=== PATIENT | female | born 1990 | race Two or more races ===

== ENCOUNTER 2021-04-22 08:10 | Outpatient (CLI) | payer OTHER | END 2021-04-22 08:11 | disposition home or self-care (01) | LOC: RX STUDY 08:10 | PROVIDERS: ATTEND Obstetrics & Gynecology Obstetrics | DX: Z98.51 Tubal ligation status (principal) ==

== ENCOUNTER 2023-09-06 14:45 | Inpatient (IN) | payer OTHER ==
[~2023-09-06] VITALS: Ht 162.6 cm; Wt 78.0 kg
[2023-09-26] MEDS ORDERED: OXYTOCIN 500 ML IV SCH (05:00)
[2023-09-26] MEDS ORDERED: AMPICILLIN SODIUM 2,000 MG VIAL IV ONE (05:00)
[2023-09-26 06:21] LABS: HEMATOCRIT 35.7 % (36.0-45.00); HEMOGLOBIN 12.5 g/dL (12.0-15.00); MEAN CELL VOLUME 95.1 fL (80.00-100.00); MEAN CORPUSCULAR HEMOGLOBIN 33.3 pg (27.00-32.0); PLATELET COUNT 250 K/uL (150-450); RED BLOOD COUNT 3.76 M/uL (4.00-6.00); RED CELL DISTRIBUTION WIDTH 12.6 % (11.5-14.5)
[2023-09-26 07:04] LABS: INR < 0.93; PARTIAL THROMBOPLASTIN TIME 27.6 SECONDS (22.0-34.0); PROTHROMBIN TIME 9.4 SECONDS (9.0-11.5)
[2023-09-26 07:09] LABS: BILIRUBIN TOTAL 0.53 mg/dL (0.3-1.2); CREATININE SERUM 0.59 mg/dL (0.55-1.02); GFR 117.38; GLOBULINA 4.1 G/DL (2.4-3.5); POTASSIUM 3.93 mEq/L (3.5-5.1); TOTAL PROTEIN 7.1 gm/dL (6.4-8.2)
[2023-09-26] MEDS ORDERED: AMPICILLIN SODIUM 1,000 MG VIAL IV SCH (08:00)
[2023-09-26] MEDS ORDERED: ONDANSETRON HCL 2 MG/ML VIAL IV NR (13:00)
[2023-09-26] MEDS ORDERED: MORPHINE SULFATE 4 MG/ML VIAL IV ONE ×2 (14:00→17:45)
[2023-09-26] MEDS ORDERED: CITRIC ACID/SODIUM CITRATE 30 ML BLIST.PACK PO NR (14:45)
[2023-09-26] MEDS ORDERED: ERYTHROMYCIN BASE 1 GM TUBE OP SCH (19:45)
[2023-09-26] MEDS ORDERED: CHLORHEXIDINE GLUCONATE 120 ML BOTTLE TP SCH (19:45)
[2023-09-26] MEDS ORDERED: IBUprofen 400 MG TABLET PO PRN (19:45)
[2023-09-26] MEDS ORDERED: DOCUSATE SODIUM 100MG CAP PO NR (20:00)
[2023-09-26] MEDS ORDERED: LIDOCAINE HCL 1% 10ML VIAL PERCUT ONE (20:00)
[2023-09-26] MEDS ORDERED: OXYTOCIN 1,000 ML IV ONE (20:15)
[2023-09-26 21:44] LABS: ABG PH 7.252 (7.35-7.45); ABG pCO2 47.1 mmHg (35-45)
[2023-09-26 21:45] LABS: ABG PO2 28.4 mmHg (80-100); BICARBONATE 20.3 mmol/l (23-25); SaO2 40.8 %; Tco2 21.7 mmol/l
[2023-09-26 21:46] LABS: o2 21 %
[2023-09-27 07:49] LABS: HEMATOCRIT 26.4 % (36.0-45.00); MEAN CELL VOLUME 93.4 fL (80.00-100.00); MEAN CORPUSCULAR HEMOGLOBIN 32.6 pg (27.00-32.0); MEAN CORPUSCULAR HGB CONC 34.9 g/dl (32.0-36.0); PLATELET COUNT 204 K/uL (150-450); RED BLOOD COUNT 2.82 M/uL (4.00-6.00); RED CELL DISTRIBUTION WIDTH 12.2 % (11.5-14.5)
[2023-09-27 07:56] LABS: HEMOGLOBIN 9.2 g/dL (12.0-15.00)
[2023-09-27] MEDS ORDERED: PNV,CALCIUM 72/IRON/FOLIC ACID 1 TAB TABLET PO SCH (09:00)
[2023-09-27] MEDS ORDERED: DOCUSATE SODIUM 100MG CAP PO SCH (09:00)
[2023-09-27] MEDS ORDERED: IRON/V.C/V.B12/FOLIC A/VIT. E 1 CAPL CAPLET PO SCH (12:00)
[2023-09-27] MEDS ORDERED: ONDANSETRON 4 MG TAB.RAPDIS PO PRN (17:30)
== END 2023-09-28 14:05 | disposition home or self-care (01) | DRG 807 ==
LOC: LDR 09-24 14:45 → OB/GYN 09-26 04:46 → LDR 09-26 04:46 → OB/GYN 09-26 12:19
PROVIDERS: Obstetrics & Gynecology Gynecology; ADMIT Obstetrics & Gynecology Maternal & Fetal Medicine; ATTEND Obstetrics & Gynecology Maternal & Fetal Medicine
PROC: 10E0XZZ Delivery of Products of Conception, External Approach (ICD-10-PCS; principal; 2023-09-26)
PROC: 0KQM0ZZ Repair Perineum Muscle, Open Approach (ICD-10-PCS; 2023-09-26)
PROC: 4A1HXCZ Monitoring of Products of Conception, Cardiac Rate, External Approach (ICD-10-PCS; 2023-09-26)
DX: O70.1 Second degree perineal laceration during delivery (principal); Z37.0 Single live birth; O99.824 Streptococcus B carrier state complicating childbirth; Z3A.37 37 weeks gestation of pregnancy; Z20.822 Contact with and (suspected) exposure to COVID-19

== ENCOUNTER 2023-09-21 08:53 | Outpatient (CLI) | payer OTHER | END 2023-09-21 09:34 | disposition home or self-care (01) | LOC: NST 08:53 | PROVIDERS: ATTEND Obstetrics & Gynecology Maternal & Fetal Medicine | DX: Z34.83 Encounter for supervision of other normal pregnancy, third trimester (principal) ==

== ENCOUNTER 2023-09-24 06:56 | Outpatient (CLI) | payer OTHER | END 2023-09-24 07:52 | disposition home or self-care (01) | LOC: NST 06:56 | PROVIDERS: ATTEND Obstetrics & Gynecology Maternal & Fetal Medicine | DX: Z34.83 Encounter for supervision of other normal pregnancy, third trimester (principal) ==

== ENCOUNTER 2024-01-16 20:59 | Emergency (ER) | payer OTHER ==
[~2024-01-16] VITALS: Ht 162.6 cm; Wt 68.0 kg
[2024-01-16 21:31] VITALS: BP 117/74; O2SAT 96
[2024-01-16] MEDS ORDERED: FAMOTIDINE/PF 20 MG in 0.9 % SODIUM CHLORIDE 8 ML IV PUSH STA (22:05)
[2024-01-16] MEDS ORDERED: ONDANSETRON HCL 2 MG/ML VIAL IV ONE (22:15)
[2024-01-16] MEDS ORDERED: HYOSCYAMINE SULFATE 0.125 MG TAB.SUBL SL ONE (22:15)
[2024-01-16] MEDS ORDERED: 0.9 % SODIUM CHLORIDE 1,000 ML IV SCH (22:15)
[2024-01-16 23:06] LABS: HEMOGLOBIN 12.6 g/dL (12.0-15.00); MEAN CELL VOLUME 89.3 fL (80.00-100.00); MEAN CORPUSCULAR HEMOGLOBIN 30.5 pg (27.00-32.0); MEAN CORPUSCULAR HGB CONC 34.1 g/dl (32.0-36.0); PLATELET COUNT 344 K/uL (150-450); RED BLOOD COUNT 4.15 M/uL (4.00-6.00); RED CELL DISTRIBUTION WIDTH 13.6 % (11.5-14.5)
[2024-01-16 23:57] LABS: ALBUMIN 4.3 gm/dL (3.4-5.0); BILIRUBIN TOTAL 0.82 mg/dL (0.3-1.2); CALCIUM 9.6 mg/dL (8.5-10.1); CREATININE SERUM 0.49 mg/dL (0.55-1.02); GFR 145.44; GLOBULINA 4.3 G/DL (2.4-3.5); POTASSIUM 3.81 mEq/L (3.5-5.1); TOTAL PROTEIN 8.6 gm/dL (6.4-8.2)
[2024-01-16] MEDS ORDERED: PEPCID AC20 MG PO (23:59)
[2024-01-16] MEDS ORDERED: ZOFRAN8 MG PO (23:59)
== END 2024-01-17 00:27 | disposition home or self-care (01) ==
LOC: ER 21:01
PROVIDERS: General Practice
DX: K29.70 Gastritis, unspecified, without bleeding (principal)